=== PATIENT | male | born 1955 | race African-American/Black ===

== ENCOUNTER → 2016-12-06 | Outpatient (CLI) | payer BC, OTHER ==
--- NOTE | 2016-12-06 16:07 | XCELERA REPORT ---
[address] [address] Lower Extremity Arterial Evaluation Name: CORRINE AGGARWAL Age: 61 yrs Gender: Male : 1955 Patient Status: Outpatient Patient Location: Study Date: 12/06/2016 07:56 AM Procedure: Normal velocity and triphasic waveforms noted from the Common Femoral artery to the Femoral Biphasic thereafter to the infrageniculate vessels. 0-19% stenosis at the Femoral artery. Ankle Brachial index is 1.32. Reason For Study: PVD Ordering Physician: NOAH GARG Performed By: Andrew Childs Measurements and Calculations Right Left SOFTWARE CLIENT ARCHITECT PSV 156.3 151.5 cm/sec Prox PFA PSV -175.2 -146.1 cm/sec Dist SFA PSV -103.7 -94.9 cm/sec Dist Pop A PSV 63.2 85.4 cm/sec Dist BEVERLY PSV 43.6 58.5 cm/sec Dist RECREATION ADVISER PSV 73.5 75.8 cm/sec Andry Pedis PSV 39.6 37.5 cm/sec Left Side Arterial Evaluation Normal velocity and triphasic waveforms noted from the Common Femoral artery to the Femoral Biphasic thereafter to the infrageniculate vessels. 0-19% stenosis at the Femoral artery. Ankle Brachial index is 1.25. Interpretation Summary Mild hemodynamically significant lesions in the bilateral lower extremities, on duplex imaging, at rest. : NOAH GARG > Noah Garg
== END ==
LOC: SP 07:39
PROVIDERS: ATTEND Surgery
DX: I73.9 Peripheral vascular disease, unspecified (principal); M79.89 Other specified soft tissue disorders
CPT/HCPCS: 93925

== ENCOUNTER 2020-06-16 00:34 | Emergency (ER) | payer OTHER, MEDICARE ==
--- NOTE | 2020-06-16 01:37 | ER Document Report ---
ED Medical Screen (RME) - General Chief Complaint: Rectal Bleeding Stated Complaint: POSSIBLE RECTAL BLEEDING Primary Care Provider: SANKET GARG MD [Primary Care Provider] - Follow up as needed Notes: Patient is a 64-year-old white male with a history of diabetes and hypertension who presents to the emergency department with a chief complaint of lower abdominal pain that began around 7:00 this evening. He states it is associated with about 6 episodes of diarrhea that he describes as bloody. States it is a dark blood. States he for believes that he has an ulcer that is causing this. He states he is never had an endoscopy or colonoscopy however. Denies any nausea or vomiting. No fevers. Admits to some slight weakness associated. Primary is Maty jacobs. I have treated and performed a rapid initial assessment of this patient. A comprehensive ED assessment and evaluation of the patient, analysis of test results and completion of medical decision making process will be conducted by additional ED providers. Will defer CT scan or other imaging evaluation subtype to selection of main ED provider who will be more extensively examining and caring for this patient. PHYSICAL EXAMINATION: GENERAL: Well-appearing, well-nourished and in no acute distress. A&Ox4. Answers questions appropriately. TRAVEL OUTSIDE OF THE [place] IN LAST 30 DAYS: No Physical Exam - Vital signs Vitals: Temp Pulse Resp BP Pulse Ox 98.2 F 86 18 136/90 H 98 06/16/20 01:04 06/16/20 01:04 06/16/20 01:04 06/16/20 01:04 06/16/20 01:04 Course - Vital Signs Vital signs: Temp Pulse Resp BP Pulse Ox 98.2 F 86 18 136/90 H 98 06/16/20 01:04 06/16/20 01:04 06/16/20 01:04 06/16/20 01:04 06/16/20 01:04 Doctor's Discharge - Discharge Referrals: SANKET GARG MD [Primary Care Provider] - Follow up as needed
[2020-06-16 02:40] LABS: ABSOLUTE EOSINOPHILS # (AUTO) 0.1 10^3/uL (0.0-0.6); ABSOLUTE LYMPHOCYTES (AUTO) 1.8 10^3/uL (0.5-4.7); ABSOLUTE MONOCYTES (AUTO) 0.7 10^3/uL (0.1-1.4); ABSOLUTE NEUT (AUTO) 2.6 10^3/uL (1.7-8.2); BASOPHILS % (AUTO) 0.5 % (0-2); HEMATOCRIT 34.1 % (37.9-51.0); HEMOGLOBIN 11.7 g/dL (13.5-17.0); LYMPHOCYTES % (AUTO) 35.3 % (13-45); MEAN CORPUSCULAR HEMOGLOBIN 31.2 pg (27.0-33.4); MEAN CORPUSCULAR HGB CONC 34.2 g/dL (32.0-36.0); MEAN CORPUSCULAR VOLUME 91 fl (80-97); MONOCYTES % (AUTO) 12.9 % (3-13); PLATELET COUNT 192 10^3/uL (150-450); RED BLOOD COUNT 3.73 10^6/uL (4.35-5.55); RED CELL DISTRIBUTION WIDTH 14.2 % (11.5-14.0); SEGMENTED NEUTROPHILS % (AUTO) 50.3 % (42-78); TOTAL CELLS COUNTED % (AUTO) 100 %; WHITE BLOOD COUNT 5.2 10^3/uL (4.0-10.5)
[2020-06-16 03:02] LABS: ALBUMIN 3.6 g/dL (3.5-5.0); ALKALINE PHOSPHATASE 60 U/L (38-126); ANION GAP 8 (5-19); ASPARTATE AMINO TRANSFERASE 27 U/L (17-59); BILIRUBIN,DIRECT 0.2 mg/dL (0.0-0.4); BILIRUBIN,TOTAL 0.5 mg/dL (0.2-1.3); BLOOD UREA NITROGEN 23 mg/dL (7-20); CALCIUM 9.4 mg/dL (8.4-10.2); CARBON DIOXIDE 27 mmol/L (22-30); CHLORIDE 107 mmol/L (98-107); GLUCOSE 118 mg/dL (75-110); TOTAL PROTEIN 6.5 g/dL (6.3-8.2)
[2020-06-16 03:08] LABS: INTERNATIONAL RATION (INR) 1.04; PROTHROMBIN TIME 13.8 SEC (11.4-15.4)
[2020-06-16 03:09] LABS: PARTIAL THROMBOPLASTIN TIME 36.7 SEC (23.5-35.8)
--- NOTE | 2020-06-16 06:00 | ER Document Report ---
ED GI/ - General Chief Complaint: Rectal Bleeding Stated Complaint: POSSIBLE RECTAL BLEEDING Time Seen by Provider: 06/16/20 05:45 Primary Care Provider: SANKET GARG MD [ACTIVE STAFF] - Follow up as needed Notes: Patient is a 64-year-old male that comes emergency department for chief complaint of lower abdominal pain that began about 7 PM yesterday, he states he had about 6 episodes of loose stool that were very dark with some casing fluid tender blood mixed in. Patient denies nausea, vomiting, fever. He states that after the sixth episode while waiting to be seen in emergency department this does seem to have slowed down. He is not on a blood thinner. He states he has had a lower GI bleed in the past, he had a colonoscopy about a year ago per which was unremarkable. He denies any abdominal surgeries. Past medical history of hypertension, diabetes, and aortic valve leak being monitored. Primary care is [facility]. TRAVEL OUTSIDE OF THE [place] IN LAST 30 DAYS: No - Related Data Allergies/Adverse Reactions: No Known Allergies Allergy (Unverified 06/16/20 01:36) Past Medical History - General Information source: Patient, Relative - Social History Smoking Status: Former Smoker Frequency of alcohol use: None Drug Abuse: None Lives with: Family Family History: Reviewed & Not Pertinent - Past Medical History Cardiac Medical History: Reports: Hx Hypertension Endocrine Medical History: Reports: Hx Diabetes Mellitus Type 2 - Immunizations Immunizations up to date: Yes Hx Diphtheria, Pertussis, Tetanus Vaccination: Yes Review of Systems - Review of Systems Constitutional: No symptoms reported EENT: No symptoms reported Cardiovascular: No symptoms reported Respiratory: No symptoms reported Gastrointestinal: See HPI Genitourinary: No symptoms reported Male Genitourinary: No symptoms reported Musculoskeletal: No symptoms reported Skin: No symptoms reported Hematologic/Lymphatic: No symptoms reported Neurological/Psychological: No symptoms reported Physical Exam - Vital signs Vitals: Temp Pulse Resp BP Pulse Ox 98.2 F 86 18 136/90 H 98 06/16/20 01:04 06/16/20 01:04 06/16/20 01:04 06/16/20 01:04 06/16/20 01:04 - Notes Notes: GENERAL: Sleeping but easily aroused. No signs of distress. HEAD: Normocephalic, atraumatic. EYES: Pupils equal, round, and reactive to light. Extraocular movements intact. ENT: Oral mucosa moist, tongue midline. Oropharynx unremarkable. Airway patent. LUNGS: Clear to auscultation bilaterally, no wheezes, rales, or rhonchi. No respiratory distress. Non-tender chest wall. HEART: Regular rate and rhythm. No murmur ABDOMEN: No overt tenderness, nondistended, bowel sounds present throughout. RECTAL: Small external skin tags, otherwise unremarkable external exam. Internal exam shows internal hemorrhoid around the 8 o'clock position. There is dark stool that is immediately Hemoccult positive. No tenderness. Otherwise unremarkable exam. Exam performed with Mariola [facility] at bedside. EXTREMITIES: Moves all 4 extremities spontaneously. No edema, normal radial and dorsalis pedis pulses bilaterally. No cyanosis. BACK: no cervical, thoracic, lumbar midline tenderness. No saddle anesthesia, normal distal neurovascular exam. Moves all extremities in full range of motion. NEUROLOGICAL: Alert and oriented x3. Normal speech. Cranial nerves II through XII grossly intact. Strength 5/5 in all extremities. PSYCH: Normal affect, normal mood. SKIN: Warm, dry, normal turgor. No rashes or lesions noted. Course - Re-evaluation Re-evalutation: Vital signs unremarkable, abdomen is unremarkable, rectal exam showing dark/black stool which is Hemoccult positive. Because of patient's abdominal pain CAT scan will be performed as well, although he does describe this as more of a "crampy pain". Lactic acid was also added but this was negative. CBC shows mild normocytic anemia at 11.7, chemistry shows mildly elevated BUN. Otherwise unremarkable. 06/16/20 CT with no acute findings incidental findings including probable liver cysts and bilateral small inguinal hernias were discussed with patient. Based on his overall evaluation, multiple black stools, black stool on exam, mildly elevated BUN, I suspect patient has a upper GI bleed. Recommended to start Protonix and admit to the hospital for monitoring and potential endoscopy/colonoscopy. However patient and significant other declined. Patient states he has stopped bleeding, he feels much better, and he would rather go home. I explained that a gastrointestinal bleed can be extremely dangerous and he could rapidly decompensate or even . Patient insists that he will be discharged, he requests medications for this, he states that if he worsens he will return and he understands the risks. He request to sign out AGAINST MEDICAL ADVICE. After discussing all the risks in detail patient did sign out AGAINST MEDICAL ADVICE. did states she will bring him back if he worsens but she agrees with his plan. - Vital Signs Vital signs: Temp Pulse Resp BP Pulse Ox 98.3 F 93 20 122/73 100 06/16/20 03:39 06/16/20 03:39 06/16/20 03:39 06/16/20 03:39 06/16/20 03:39 - Laboratory Result Diagrams: 06/16/20 02:05 06/16/20 02:05 Laboratory results interpreted by me: 06/16/20 06/16/20 06/16/20 02:05 02:05 02:05 RBC 3.73 L Hgb 11.7 L Hct 34.1 L RDW 14.2 H APTT 36.7 H BUN 23 H Glucose 118 H Discharge - Discharge Clinical Impression: Upper GI bleed Abdominal pain Qualifiers: Abdominal location: generalized Qualified Code(s): R10.84 - Generalized abdominal pain Condition: Stable Disposition: HOME, SELF-CARE Additional Instructions: Your evaluation is concerning for an upper gastrointestinal bleed. You are signing out AGAINST MEDICAL ADVICE at this time. There is a possibility that you could become severely ill or even from a gastrointestinal bleed. You tang ve been prescribed medications, however the recommendation is that you return to the emergency department or seek medical care at a nearby medical facility for additional treatment of your GI bleed. Prescriptions: Sucralfate [Carafate 1 gm Tablet] 1 gm PO QID #20 tablet Omeprazole 40 mg PO DAILY #30 capsule.
--- NOTE | 2020-06-16 07:24 | RADIOLOGY REPORT (SQ) ---
EXAM: CT abdomen and pelvis with IV contrast CLINICAL DATA: 64-year-old male with abdominal pain and blood in stool TECHNICAL DATA: Axial CT imaging of the abdomen and pelvis was performed following the administration of intravenous contrast.. Oral contrast was not administered. Sagittal and coronal reconstructed images were then performed. The CT study is performed according to ALARA (as low as reasonably achievable) or ALARA/IMAGE GENTLY, with automatic adjustment of mA and/or kV according to patient size. Performed on: 06/16/2020 at 6:34 AM. Comparison: No prior studies were available for comparison. FINDINGS: Lung bases: The lung bases are clear. Liver:The liver is normal in size and configuration. There are multiple sharply marginated low density lesions scattered throughout the liver most compatible with incidental hepatic cysts. The largest is located along the dome of the posterior right hepatic lobe and measures approximately 3.9 x 2.7 x 2.7 cm. Liver attenuation is otherwise within normal limits. Spleen:The spleen is normal is size, configuration and attenuation. Gallbladder and bile duct: The gallbladder is well distended and unremarkable. There is no biliary ductal dilatation. Pancreas: The pancreas is grossly normal in size and configuration. Adrenal Glands:The adrenal glands are normal in size and configuration. Kidneys:The kidneys are normal in size and configuration. There is no evidence of hydronephrosis. There is no evidence of nephrolithiasis. There is a tiny exophytic cortical cyst arising from the lower pole of the right kidney. Stomach:The stomach is grossly normal. There is no definite hiatal hernia. Bowel:The bowel gas pattern is non specific and non obstructive. There is scattered colonic diverticulosis. Appendix: The appendix is normal. Free air:There is no evidence of free air. Free fluid: There is no evidence of free fluid. Vasculature: The aorta is normal in caliber and contour. The inferior vena cava is grossly unremarkable. Lymphadenopathy: No pathologic lymphadenopathy is identified. Bladder: The bladder is well distended and smooth in contour. Reproductive: The prostate gland is enlarged and deforms the base of the bladder. Bones: No acute osseous abnormalities are identified. Soft tissues: No focal soft tissue abnormalities are identified. There are small bilateral fat-containing inguinal hernias. IMPRESSION: 1. No evidence of acute intra-abdominal or intrapelvic pathology. 2. Multiple sharply marginated hypodense hepatic mass lesions most compatible with incidental hepatic cysts as described above. 3. Scattered colonic diverticulosis without su diverticulitis. 4. Prostatic hypertrophy. The prostate gland deforms the base of the bladder. 5. Small bilateral fat-containing inguinal hernias.
[2020-06-16 07:53] VITALS: BP 128/82
== END 2020-06-16 07:51 | disposition home or self-care (01) ==
LOC: ER 00:34
DX: K92.2 Gastrointestinal hemorrhage, unspecified (principal); R10.84 Generalized abdominal pain; R10.30 Lower abdominal pain, unspecified; I10 Essential (primary) hypertension; E11.9 Type 2 diabetes mellitus without complications
CPT/HCPCS: 36415; 74177; 80053; 82270; 83605; 83690; 85025; 85610; 85730; 86850; 86900; 86901; 99285

== ENCOUNTER 2020-06-19 13:40 | Inpatient (IN) | payer OTHER, MEDICARE ==
[2020-06-19] MEDS ORDERED: RINGERS SOLUTION,LACTATED 1,000 ML IV ONE (13:42)
--- NOTE | 2020-06-19 13:45 | ER Document Report ---
ED Medical Screen (RME) - General Chief Complaint: Bloody Stools Stated Complaint: BLOODY STOOL Time Seen by Provider: 06/19/20 13:41 TRAVEL OUTSIDE OF THE [place] IN LAST 30 DAYS: No - HPI Notes: 06/19/20 13:43 64-year-old male to the emergency department with complaints of 6 episodes of frankly bloody stool today and left lower quadrant abdominal pain as well as feeling like he is going to pass out. He was seen here 2 days ago for the same. He was offered admission but he decided to go home. He is following up with [facility] today when he let them know that his symptoms were getting worse. He states they offered to send him in an ambulance but he decided to come by private vehicle. He states anytime he sits up or tries to walk he feels like he is going to pass out. He denies any nausea or vomiting. He does have a history of diverticulitis. He denies any fevers or chills. He denies any chest pain. I was called out to the parking lot to his private vehicle because he could not get out of the car without assistance. He has on my brief medical screening exam left lower quadrant abdominal pain and he is significantly pale on his mucosal membranes and conjunctive. He was moved directly back to bed 18 where labs and line were drawn. Charge nurse is actively aware and involved in his care. I performed a brief medical screening exam on the patient determined that the patient needs further evaluation and management by main side provider. I have placed initial orders to help expedite care. - Related Data Allergies/Adverse Reactions: No Known Allergies Allergy (Unverified 06/16/20 01:36) Past Medical History - Past Medical History Cardiac Medical History: Reports: Hx Hypertension Endocrine Medical History: Reports: Hx Diabetes Mellitus Type 2 - Immunizations Immunizations up to date: Yes Hx Diphtheria, Pertussis, Tetanus Vaccination: Yes
[2020-06-19 13:59] LABS: ABSOLUTE EOSINOPHILS # (AUTO) 0.1 10^3/uL (0.0-0.6); ABSOLUTE LYMPHOCYTES (AUTO) 2.5 10^3/uL (0.5-4.7); ABSOLUTE MONOCYTES (AUTO) 0.7 10^3/uL (0.1-1.4); BASOPHILS % (AUTO) 0.6 % (0-2); HEMATOCRIT 25.5 % (37.9-51.0); HEMOGLOBIN 8.9 g/dL (13.5-17.0); LYMPHOCYTES % (AUTO) 39.2 % (13-45); MEAN CORPUSCULAR HEMOGLOBIN 31.7 pg (27.0-33.4); MEAN CORPUSCULAR HGB CONC 34.7 g/dL (32.0-36.0); MEAN CORPUSCULAR VOLUME 92 fl (80-97); MONOCYTES % (AUTO) 11.7 % (3-13); PLATELET COUNT 220 10^3/uL (150-450); RED BLOOD COUNT 2.79 10^6/uL (4.35-5.55); SEGMENTED NEUTROPHILS % (AUTO) 47.5 % (42-78); TOTAL CELLS COUNTED % (AUTO) 100 %; WHITE BLOOD COUNT 6.3 10^3/uL (4.0-10.5)
[2020-06-19 14:20] LABS: ALBUMIN 3.8 g/dL (3.5-5.0); ALKALINE PHOSPHATASE 56 U/L (38-126); ANION GAP 8 (5-19); ASPARTATE AMINO TRANSFERASE 28 U/L (17-59); BILIRUBIN,DIRECT 0.1 mg/dL (0.0-0.4); BILIRUBIN,TOTAL 0.3 mg/dL (0.2-1.3); BLOOD UREA NITROGEN 15 mg/dL (7-20); CALCIUM 9.1 mg/dL (8.4-10.2); CARBON DIOXIDE 27 mmol/L (22-30); CHLORIDE 105 mmol/L (98-107); GLUCOSE 130 mg/dL (75-110); POTASSIUM 3.9 mmol/L (3.6-5.0); TOTAL PROTEIN 6.5 g/dL (6.3-8.2)
[2020-06-19] MEDS ORDERED: NORMAL SALINE 1000 ML 1,000 ML IV ONE (16:11)
--- NOTE | 2020-06-19 16:29 | ER Document Report ---
ED General - General Chief Complaint: GI Bleeding Stated Complaint: BLOODY STOOL Time Seen by Provider: 06/19/20 13:41 Notes: 64 year old male with h/o htn, dm, hld, valvular heart disease and diverticular disease had rectal bleeding this am - blood mixed with stool and then nearly passed out. He presented here for evaluation. He was here 2 days ago for bleeding and had hgb 11.7 at that time. He left against medical advice with that visit. He has developed some increased LLQ pain since the last visit. He follows locally with [facility] for his medical care. TRAVEL OUTSIDE OF THE [place] IN LAST 30 DAYS: No - HPI Severity: Moderate Associated symptoms: Weakness Exacerbated by: Denies Relieved by: Denies Similar symptoms previously: Yes - Related Data Allergies/Adverse Reactions: No Known Allergies Allergy (Unverified 06/16/20 01:36) Past Medical History - Social History Smoking Status: Former Smoker Chew tobacco use (# tins/day): No Frequency of alcohol use: None Drug Abuse: None Family History: Reviewed & Not Pertinent Patient has homicidal ideation: No - Past Medical History Cardiac Medical History: Reports: Hx Hypertension Endocrine Medical History: Reports: Hx Diabetes Mellitus Type 2 - Immunizations Immunizations up to date: Yes Hx Diphtheria, Pertussis, Tetanus Vaccination: Yes Physical Exam - Vital signs Vitals: Resp Pulse Ox 9 L 100 06/19/20 13:50 06/19/20 13:50 Interpretation: Normal - General General appearance: Appears well, Alert - HEENT Head: Normocephalic, Atraumatic Eyes: Normal Pupils: PERRL - Respiratory Respiratory status: No respiratory distress Chest status: Nontender Breath sounds: Normal Chest palpation: Normal - Cardiovascular Rhythm: Regular Heart sounds: Normal auscultation Murmur: No - Abdominal Inspection: Normal Distension: No distension Bowel sounds: Normal Tenderness: Nontender Organomegaly: No organomegaly - Back Back: Normal, Nontender - Extremities General upper extremity: Normal inspection, Nontender, Normal color, Normal ROM, Normal temperature General lower extremity: Normal inspection, Nontender, Normal color, Normal ROM, Normal temperature, Normal weight bearing. No: David's sign - Neurological Neuro grossly intact: Yes Cognition: Normal Orientation: AAOx4 [place] Coma Scale Eye Opening: Spontaneous Benny Coma Scale Verbal: Oriented [place] Coma Scale Motor: Obeys Commands Benny Coma Scale Total: 15 Speech: Normal Motor strength normal: LUE, RUE, LLE, RLE Sensory: Normal - Psychological Associated symptoms: Normal affect, Normal mood - Skin Skin Temperature: Warm Skin Moisture: Dry Skin Color: Normal Course - Re-evaluation Re-evalutation: 06/19/20 18:33 MDM 64 year old male with known diverticular disease has lower gi bleed and decreasing hgb, 11.7 to 8.9. He takes no anticoagulation. Dr. Solares is aware and has graciously agreed to see and evaluate the pt. Discussed with the daytime team at 1820 and asked to consult Safely which was done. I have discussed the pt with Dr. Mansfield. - Vital Signs Vital signs: Temp Pulse Resp BP Pulse Ox 98.1 F 14 143/83 H 99 06/19/20 14:01 06/19/20 17:00 06/19/20 16:00 06/19/20 17:00 - Laboratory Result Diagrams: 06/19/20 13:40 06/19/20 13:40 Laboratory results interpreted by me: 06/19/20 06/19/20 13:40 13:40 RBC 2.79 L Hgb 8.9 L Hct 25.5 L Glucose 130 H - Diagnostic Test Radiology reviewed: Image reviewed, Reports reviewed - EKG Interpretation by Me EKG shows normal: Sinus rhythm Rate: Normal Rhythm: NSR Voltage: Consistent with LVH - NSR NL axis LVH Repola ab no st elevation or depression. Discharge - Discharge Clinical Impression: Rectal bleeding, Diverticulosis Abdominal pain Qualifiers: Abdominal location: left lower quadrant Qualified Code(s): R10.32 - Left lower quadrant pain Condition: Stable Disposition: ADMITTED OBSERVATION Admitting Provider: Donal (Hospitalist) Unit Admitted: Telemetry
[2020-06-19] MEDS ORDERED: ERTAPENEM SODIUM INJ 1 GM VIAL IV ONE (16:30)
--- NOTE | 2020-06-19 18:10 | EKG REPORT ---
SEVERITY:- ABNORMAL ECG - SINUS RHYTHM LEFT VENTRICULAR HYPERTROPHY BORDERLINE T ABNORMALITIES, DIFFUSE LEADS : Confirmed by: Otis Cannon MD 19-Jun-2020 18:09:48
--- NOTE | 2020-06-19 18:11 | RADIOLOGY REPORT (SQ) ---
EXAM DESCRIPTION: CT ABD/PELVIS WITH IV ONLY IMAGES COMPLETED DATE/TIME: 06/19/2020 5:54 pm REASON FOR STUDY: LLQ pain COMPARISON: 06/16/2020 TECHNIQUE: CT scan of the abdomen and pelvis performed using helical scanning technique with dynamic intravenous contrast injection. No oral contrast. Images reviewed with lung, soft tissue, and bone windows. Reconstructed coronal and sagittal MPR images reviewed. Delayed images for evaluation of the urinary system also acquired. All images stored on PACS. All CT scanners at this facility use dose modulation, iterative reconstruction, and/or weight based d osing when appropriate to reduce radiation dose to as low as reasonably achievable (ALARA). [facility]: Dose Right [facility]: CareDose [facility]: Dose Right [facility]: Teradose 4D [facility]: Netragon CONTRAST TYPE AND DOSE: contrast/concentration: Isovue 350.00 mmol/ml; Total Contrast Delivered: 99. 0 ml; Total Saline Delivered: 30.9 ml RENAL FUNCTION: BUN 15 creatinine 0.89 RADIATION DOSE: CT Rad equipment meets quality standard of care and radiation dose reduction techniq ues were employed. CTDIvol: 10.8 - 15.2 mGy. DLP: 1404 mGy-cm.. LIMITATIONS: None. FINDINGS: LOWER CHEST: No significant findings. No nodules or infiltrates. LIVER: Hepatic cysts are present. No solid masses. SPLEEN: Normal size. No focal lesions. PANCREAS: No masses. No significant calcifications. No adjacent inflammation or peripancreatic fluid collections. Pancreatic duct not dilated. GALLBLADDER: No identified stones by CT criteria. No inflammatory changes to suggest cholecystitis. ADRENAL GLANDS: No significant masses or asymmetry. RIGHT KIDNEY AND URETER: No solid masses. No significant calcifications. No hydronephrosis or hyd roureter. LEFT KIDNEY AND URETER: No solid masses. No significant calcifications. No hydronephrosis or hydr oureter. AORTA AND VESSELS: No aneurysm. No dissection. Renal arteries, SMA, celiac without stenosis. RETROPERITONEUM: No retroperitoneal adenopathy, hemorrhage or masses. BOWEL AND PERITONEAL CAVITY: Diverticulosis with no acute inflammation. No obvious bowel mass. APPENDIX: Normal. PELVIS: Urinary bladder is normal. The prostate gland is enlarged. ABDOMINAL WALL: Uncomplicated inguinal hernias. BONES: No significant or acute findings. OTHER: No other significant finding. IMPRESSION: Hepatic cysts. Diverticulosis coli. Uncomplicated inguinal hernias. Enlarged prostate gland. TECHNICAL DOCUMENTATION: JOB ID: [id number] Quality ID # [id number]: Final reports with documentation of one or more dose reduction techniques (e.g., Au tomated exposure control, adjustment of the mA and/or kV according to patient size, use of iterative reconstruction technique) 2010 [employer]- All Rights Reserved Reading location - IP/workstation name: [email or web address]
[2020-06-19] MEDS ORDERED: IPRATROPIUM/ALBUTEROL 0.5-2.5 MG/3 ML AMPUL NEB PRN (18:47)
--- NOTE | 2020-06-19 18:57 | PDOC H&P ---
History of Present Illness Admission Date/PCP: 06/19/2020 Patient complains of: Presents to the emergency room with complaints of rectal bleeding. History of Present Illness: CORRINE AGGARWAL is a 64 year old male Presents to the emergency room with complaints of rectal bleeding. He does give a prior history of diverticulosis. He was here in the ER 2 days ago and returns today with the same complaints. He left AGAINST MEDICAL ADVICE at the time. He also complains of some left lower quadrant pain. There is no nausea vomiting. He was found to have diverticulosis on CT scan with no other significant findings. He did have an enlarged prostate gland and uncomplicated inguinal hernias. According to the ER physician he is already consulted general surgery. Patient's hemoglobin was 11.7 on June 16 and is currently 8.9 today his BUN was 23 and it is currently 15 and is also hemodynamically stable. He is not hypotensive Past Medical History Cardiac Medical History: Reports: Hypertension Endocrine Medical History: Reports: Diabetes Mellitus Type 2 Past Surgical History Past Surgical History: Reports: None Social History Information Source: Patient Smoking Status: Former Smoker Electronic Cigarette use?: No - Advance Directive Resuscitation Status: Full Code Family History Family History: Reviewed & Not Pertinent Parental Family History Reviewed: Yes Children Family History Reviewed: Yes Sibling(s) Family History Reviewed.: Yes Medication/Allergy Home Medications: Omeprazole 40 mg PO DAILY #30 capsule. 06/16/20 Sucralfate [Carafate 1 gm Tablet] 1 gm PO QID #20 tablet 06/16/20 Albuterol Sulfate [Proair Hfa Inhalation Aerosol 8.5 gm Mdi] 2 puff IH Q4HP PRN 06/19/20 Allopurinol [Zyloprim 100 mg Tablet] 100 mg PO DAILY 06/19/20 Atenolol [Tenormin] 25 mg PO DAILY 06/19/20 Atorvastatin Calcium [Lipitor 40 mg Tablet] 40 mg PO QHS 06/19/20 Carboxymethylcellulose Sodium [Lubricating Plus] 1 each OP TID 06/19/20 Diltiazem HCl [Cardizem Cd] 360 mg PO DAILY 06/19/20 Ergocalciferol (Vitamin D2) [Vitamin D2] 1,250 mcg PO Q7D 06/19/20 Fluticasone Propionate [Flonase Nasal Adams 50 Mcg/Adams 16 gm] 2 spray NASL DAILY 06/19/20 Furosemide [Lasix 20 mg Tablet] 20 mg PO QAM 06/19/20 Gabapentin [Neurontin] 800 mg PO TID 06/19/20 Hydrochlorothiazide [Hydrodiuril 50 mg Tablet] 50 mg PO DAILY 06/19/20 Lisinopril/Hydrochlorothiazide [Lisinopril-Hctz 20-25 mg Tab] 1 each PO DAILY 06/19/20 Loratadine [Claritin 10 mg Tablet] 10 mg PO DAILY 06/19/20 Metformin HCl 500 mg PO BID 06/19/20 Montelukast Sodium [Singulair 10 mg Tablet] 10 mg PO DAILY 06/19/20 Nitroglycerin [Nitrostat 0.4 mg (1/150 Gr) Tabs 25/Bottle] 1 tab SL Q5MP PRN 06/19/20 Potassium Chloride [Klor-Con M10] 10 meq PO DAILY 06/19/20 Sertraline HCl [Zoloft 50 mg Tablet] 50 mg PO DAILY 06/19/20 Tizanidine HCl [Zanaflex 4 Mg Tablet] 4 mg PO TID 06/19/20 Allergies/Adverse Reactions: No Known Allergies Allergy (Unverified 06/16/20 01:36) Review of Systems All systems: reviewed and no additional remarkable complaints except as stated Cardiovascular: ABSENT: chest pain, dyspnea on exertion, palpitations Respiratory: ABSENT: hemoptysis Gastrointestinal: PRESENT: melena. ABSENT: diarrhea, nausea, vomiting Genitourinary: ABSENT: hematuria Physical Exam Vital Signs: Temp Pulse Resp BP Pulse Ox 98.1 F 14 143/83 H 99 06/19/20 14:01 06/19/20 17:00 06/19/20 16:00 06/19/20 17:00 Intake & Output 06/18/20 06/19/20 06/20/20 06:59 06:59 06:59 Intake Total 1000 Balance 1000 General appearance: PRESENT: no acute distress, well-developed, well-nourished Head exam: PRESENT: atraumatic, normocephalic Eye exam: PRESENT: conjunctiva pink, EOMI, PERRLA. ABSENT: scleral icterus Ear exam: PRESENT: normal external ear exam Mouth exam: PRESENT: moist, tongue midline Neck exam: ABSENT: carotid bruit, JVD, lymphadenopathy, thyromegaly Respiratory exam: PRESENT: clear to auscultation bobbi. ABSENT: rales, rhonchi, wheezes Cardiovascular exam: PRESENT: RRR, +S1, +S2. ABSENT: diastolic murmur, rubs, systolic murmur Pulses: PRESENT: normal dorsalis pedis pul Vascular exam: PRESENT: normal capillary refill GI/Abdominal exam: PRESENT: normal bowel sounds, soft. ABSENT: distended, guarding, mass, organolmegaly, rebound, tenderness Rectal exam: PRESENT: deferred Extremities exam: PRESENT: full ROM. ABSENT: calf tenderness, clubbing, pedal edema Neurological exam: PRESENT: alert, awake, oriented to person, oriented to place, oriented to time, oriented to situation, CN II-XII grossly intact. ABSENT: motor sensory deficit Psychiatric exam: PRESENT: appropriate affect, normal mood. ABSENT: homicidal ideation, suicidal ideation Skin exam: PRESENT: dry, intact, warm. ABSENT: cyanosis, rash Results Laboratory Results: 06/19/20 13:40 06/19/20 13:40 06/19/20 06/19/20 06/19/20 13:40 13:40 13:40 WBC 6.3 RBC 2.79 L Hgb 8.9 L Hct 25.5 L MCV 92 MCH 31.7 MCHC 34.7 RDW 14.0 Plt Count 220 Seg Neutrophils % 47.5 Sodium 140.0 Potassium 3.9 Chloride 105 Carbon Dioxide 27 Anion Gap 8 BUN 15 Creatinine 0.89 Est GFR ( Amer) > 60 Glucose 130 H Lactic Acid Calcium 9.1 Magnesium Total Bilirubin 0.3 AST 28 Alkaline Phosphatase 56 Total Protein 6.5 Albumin 3.8 Lipase 71.3 Blood Type O POSITIVE Antibody Screen NEGATIVE 06/19/20 06/19/20 15:40 17:09 WBC RBC Hgb Hct MCV MCH MCHC RDW Plt Count Seg Neutrophils % Sodium Potassium Chloride Carbon Dioxide Anion Gap BUN Creatinine Est GFR ( Amer) Glucose Lactic Acid 1.7 Calcium Magnesium 1.8 Total Bilirubin AST Alkaline Phosphatase Total Protein Albumin Lipase Blood Type Antibody Screen Impressions: Abdomen/Pelvis CT 06/19/20 16:10 IMPRESSION: Hepatic cysts. Diverticulosis coli. Uncomplicated inguinal hernias. Enlarged prostate gland. Assessment and Plan - Diagnosis (1) Abdominal pain Qualifiers: Abdominal location: left lower quadrant Qualified Code(s): R10.32 - Left lower quadrant pain Is this a current diagnosis for this admission?: Yes (2) Diverticulosis Is this a current diagnosis for this admission?: Yes (3) Rectal bleeding Is this a current diagnosis for this admission?: Yes (4) Upper GI bleed Is this a current diagnosis for this admission?: Yes (5) Anemia Is this a current diagnosis for this admission?: Yes Plan: Acute blood loss - Plan Summary Summary: Continue with to monitor H&H and transfuse as indicated - Time Time Spent with patient: 25-34 minutes Medications reviewed and adjusted accordingly: Yes Anticipated Discharge Disposition: Home, Self Care Anticipated Discharge Timeframe: within 48 hours
[2020-06-19] MEDS: PANTOPRAZOLE SODIUM 40 MG VIAL IV SCH (22:25)
[2020-06-19] MEDS: NORMAL SALINE 1000 ML 1,000 ML IV PRN (23:00)
[2020-06-20 00:57] LABS: ABSOLUTE LYMPHOCYTES (AUTO) 1.9 10^3/uL (0.5-4.7); ABSOLUTE MONOCYTES (AUTO) 0.7 10^3/uL (0.1-1.4); ABSOLUTE NEUT (AUTO) 2.9 10^3/uL (1.7-8.2); BASOPHILS % (AUTO) 0.5 % (0-2); EOSINOPHILS % (AUTO) 0.7 % (0-6); HEMATOCRIT 20.7 % (37.9-51.0); LYMPHOCYTES % (AUTO) 34.3 % (13-45); MEAN CORPUSCULAR HEMOGLOBIN 31.6 pg (27.0-33.4); MEAN CORPUSCULAR HGB CONC 34.7 g/dL (32.0-36.0); MEAN CORPUSCULAR VOLUME 91 fl (80-97); MONOCYTES % (AUTO) 12.8 % (3-13); PLATELET COUNT 180 10^3/uL (150-450); RED BLOOD COUNT 2.28 10^6/uL (4.35-5.55); SEGMENTED NEUTROPHILS % (AUTO) 51.7 % (42-78); TOTAL CELLS COUNTED % (AUTO) 100 %; WHITE BLOOD COUNT 5.6 10^3/uL (4.0-10.5)
[2020-06-20 01:02] LABS: HEMOGLOBIN 7.2 g/dL (13.5-17.0)
[2020-06-20] MEDS ORDERED: DEXTROSE 50%-WATER SYRINGE 25 GM/50 ML DOSE IV PRN ×2 (02:30→19:30)
[2020-06-20] MEDS ORDERED: DEXTROSE 40% GEL 15 GM TUBE PO PRN ×2 (02:30→19:30)
[2020-06-20] MEDS ORDERED: DEXTROSE 40% GEL 15 GM TUBE X 2 PO PRN ×2 (02:30→19:30)
[2020-06-20] MEDS ORDERED: GLUCAGON,HUMAN RECOMB 1 MG INJ IM PRN ×2 (02:30→19:30)
[2020-06-20] MEDS ORDERED: DEXTROSE 50%-WATER SYRINGE 12.5 GM/25 ML DOSE IV PRN ×2 (02:30→19:30)
[2020-06-20] MEDS: NORMAL SALINE 1000 ML 1,000 ML IV PRN (05:35)
[2020-06-20 06:50] LABS: ABSOLUTE EOSINOPHILS # (AUTO) 0.1 10^3/uL (0.0-0.6); ABSOLUTE LYMPHOCYTES (AUTO) 1.8 10^3/uL (0.5-4.7); ABSOLUTE MONOCYTES (AUTO) 0.7 10^3/uL (0.1-1.4); ABSOLUTE NEUT (AUTO) 2.4 10^3/uL (1.7-8.2); BASOPHILS % (AUTO) 0.9 % (0-2); EOSINOPHILS % (AUTO) 1.4 % (0-6); HEMATOCRIT 20.7 % (37.9-51.0); LYMPHOCYTES % (AUTO) 36.3 % (13-45); MEAN CORPUSCULAR HEMOGLOBIN 31.5 pg (27.0-33.4); MEAN CORPUSCULAR HGB CONC 34.5 g/dL (32.0-36.0); MEAN CORPUSCULAR VOLUME 91 fl (80-97); MONOCYTES % (AUTO) 14.3 % (3-13); PLATELET COUNT 183 10^3/uL (150-450); RED BLOOD COUNT 2.27 10^6/uL (4.35-5.55); RED CELL DISTRIBUTION WIDTH 14.3 % (11.5-14.0); SEGMENTED NEUTROPHILS % (AUTO) 47.1 % (42-78); TOTAL CELLS COUNTED % (AUTO) 100 %
[2020-06-20 06:56] LABS: HEMOGLOBIN 7.2 g/dL (13.5-17.0)
[2020-06-20 07:00] LABS: ANION GAP 8 (5-19); BLOOD UREA NITROGEN 11 mg/dL (7-20); CALCIUM 8.6 mg/dL (8.4-10.2); CARBON DIOXIDE 23 mmol/L (22-30); CHLORIDE 108 mmol/L (98-107); GLUCOSE 91 mg/dL (75-110)
[2020-06-20] MEDS ORDERED: NORMAL SALINE 250 ML IV PRN ×2 (07:06)
--- NOTE | 2020-06-20 12:58 | PDOC PROGRESS REPORT ---
Subjective Progress Note for:: 06/20/20 Subjective:: Patient has not had any BM since yesterday. His hemoglobin is noted to have drifted though from 8.7 on admission to 7.2 this morning he is currently receiving 1 unit of packed red blood cells. There is no dizziness or chest pain. He has no nausea vomiting. Reason For Visit: GI BLEEDING,DIVERTICULOSIS Physical Exam Vital Signs: Temp Pulse Resp BP Pulse Ox 98.4 F 82 16 154/52 H 95 06/20/20 11:08 06/20/20 11:08 06/20/20 11:08 06/20/20 11:08 06/20/20 11:08 Intake & Output 06/19/20 06/20/20 06/21/20 06:59 06:59 05:59 Intake Total 2000 0 Output Total 0 Balance 1999 0 Weight 93 kg General appearance: PRESENT: no acute distress, well-developed, well-nourished Head exam: PRESENT: atraumatic, normocephalic Eye exam: PRESENT: conjunctiva pink, EOMI, PERRLA. ABSENT: scleral icterus Ear exam: PRESENT: normal external ear exam Mouth exam: PRESENT: moist, tongue midline Neck exam: ABSENT: carotid bruit, JVD, lymphadenopathy, thyromegaly Respiratory exam: PRESENT: clear to auscultation bobbi. ABSENT: rales, rhonchi, wheezes Cardiovascular exam: PRESENT: RRR, +S1, +S2. ABSENT: diastolic murmur, rubs, systolic murmur Pulses: PRESENT: normal dorsalis pedis pul Vascular exam: PRESENT: normal capillary refill GI/Abdominal exam: PRESENT: normal bowel sounds, soft, tenderness - Mild left lower quadrant tenderness. ABSENT: distended, guarding, mass, organolmegaly, rebound Rectal exam: PRESENT: deferred Extremities exam: PRESENT: full ROM. ABSENT: calf tenderness, clubbing, pedal edema Neurological exam: PRESENT: alert, awake, oriented to person, oriented to place, oriented to time, oriented to situation, CN II-XII grossly intact. ABSENT: motor sensory deficit Psychiatric exam: PRESENT: appropriate affect, normal mood. ABSENT: homicidal ideation, suicidal ideation Skin exam: PRESENT: dry, intact, warm. ABSENT: cyanosis, rash Results Laboratory Results: 06/20/20 06:19 06/20/20 06:19 06/19/20 06/19/20 06/19/20 13:40 13:40 13:40 WBC 6.3 RBC 2.79 L Hgb 8.9 L Hct 25.5 L MCV 92 MCH 31.7 MCHC 34.7 RDW 14.0 Plt Count 220 Seg Neutrophils % 47.5 Sodium 140.0 Potassium 3.9 Chloride 105 Carbon Dioxide 27 Anion Gap 8 BUN 15 Creatinine 0.89 Est GFR ( Amer) > 60 Glucose 130 H Lactic Acid Calcium 9.1 Magnesium Total Bilirubin 0.3 AST 28 Alkaline Phosphatase 56 Total Protein 6.5 Albumin 3.8 Lipase 71.3 Blood Type O POSITIVE Antibody Screen NEGATIVE 06/19/20 06/19/20 06/20/20 15:40 17:09 00:40 WBC 5.6 RBC 2.28 L Hgb 7.2 L Hct 20.7 L MCV 91 MCH 31.6 MCHC 34.7 RDW 14.0 Plt Count 180 Seg Neutrophils % 51.7 Sodium Potassium Chloride Carbon Dioxide Anion Gap BUN Creatinine Est GFR ( Amer) Glucose Lactic Acid 1.7 Calcium Magnesium 1.8 Total Bilirubin AST Alkaline Phosphatase Total Protein Albumin Lipase Blood Type Antibody Screen 06/20/20 06/20/20 06:19 06:19 WBC 5.0 RBC 2.27 L Hgb 7.2 L Hct 20.7 L MCV 91 MCH 31.5 MCHC 34.5 RDW 14.3 H Plt Count 183 Seg Neutrophils % 47.1 Sodium 139.4 Potassium 4.0 Chloride 108 H Carbon Dioxide 23 Anion Gap 8 BUN 11 Creatinine 0.77 Est GFR ( Amer) > 60 Glucose 91 Lactic Acid Calcium 8.6 Magnesium Total Bilirubin AST Alkaline Phosphatase Total Protein Albumin Lipase Blood Type Antibody Screen Impressions: Abdomen/Pelvis CT 06/19/20 16:10 IMPRESSION: Hepatic cysts. Diverticulosis coli. Uncomplicated inguinal herni as. Enlarged prostate gland. Assessment and Plan - Diagnosis (1) Abdominal pain Qualifiers: Abdominal location: left lower quadrant Qualified Code(s): R10.32 - Left lower quadrant pain Is this a current diagnosis for this admission?: Yes (2) Diverticulosis Is this a current diagnosis for this admission?: Yes Plan: CT scan does show diverticulosis. There is no evidence of acute infection so I will hold off on any antibiotic for now (3) Rectal bleeding Is this a current diagnosis for this admission?: Yes (4) Acute blood loss anemia Is this a current diagnosis for this admission?: Yes Plan: Likely secondary to lower GI bleed, diverticulosis, currently being transfused. Dr. Rivera was consulted in the ED although there is no indication for any surgical intervention at this time (5) Lower GI bleed Is this a current diagnosis for this admission?: Yes - Plan Summary Summary: Continue with to monitor H&H and transfuse as indicated - Time Time Spent with patient: 15-24 minutes Medications reviewed and adjusted accordingly: Yes Anticipated Discharge Disposition: Home, Self Care Anticipated Discharge Timeframe: within 48 hours
[2020-06-20 14:00] LABS: ABSOLUTE BASOPHILS # (AUTO) 0.1 10^3/uL (0.0-0.2); ABSOLUTE EOSINOPHILS # (AUTO) 0.1 10^3/uL (0.0-0.6); ABSOLUTE LYMPHOCYTES (AUTO) 2.1 10^3/uL (0.5-4.7); ABSOLUTE MONOCYTES (AUTO) 0.8 10^3/uL (0.1-1.4); ABSOLUTE NEUT (AUTO) 3.4 10^3/uL (1.7-8.2); BASOPHILS % (AUTO) 0.8 % (0-2); EOSINOPHILS % (AUTO) 1.2 % (0-6); HEMATOCRIT 25.9 % (37.9-51.0); HEMOGLOBIN 8.9 g/dL (13.5-17.0); LYMPHOCYTES % (AUTO) 33.2 % (13-45); MEAN CORPUSCULAR HEMOGLOBIN 30.9 pg (27.0-33.4); MEAN CORPUSCULAR HGB CONC 34.5 g/dL (32.0-36.0); MEAN CORPUSCULAR VOLUME 90 fl (80-97); MONOCYTES % (AUTO) 12.4 % (3-13); PLATELET COUNT 201 10^3/uL (150-450); RED BLOOD COUNT 2.89 10^6/uL (4.35-5.55); RED CELL DISTRIBUTION WIDTH 14.5 % (11.5-14.0); SEGMENTED NEUTROPHILS % (AUTO) 52.4 % (42-78); TOTAL CELLS COUNTED % (AUTO) 100 %; WHITE BLOOD COUNT 6.4 10^3/uL (4.0-10.5)
[2020-06-20] MEDS ORDERED: ALBUTEROL SULFATE HFA (90 MCG/PUFF) 8 GM MDI (1 MDI/ER DISP) IH PRN (16:55)
[2020-06-20] MEDS ORDERED: ERGOCALCIFEROL (VITAMIN D2) 50000 UNIT (1.25 MG) CAPSULE PO SCH (17:00)
[2020-06-20] MEDS: PANTOPRAZOLE SODIUM 40 MG VIAL IV SCH ×2 (18:04→21:41)
[2020-06-20] MEDS: SERTRALINE HCL 50 MG TABLET PO SCH (18:12)
[2020-06-20] MEDS: SUCRALFATE 1 GM TABLET PO SCH ×2 (18:12→21:41)
[2020-06-20] MEDS: TIZANIDINE HCL 4 MG TABLET PO SCH (18:12)
[2020-06-20] MEDS: ATORVASTATIN CALCIUM 40 MG TABLET PO SCH (21:41)
[2020-06-20] MEDS: INSULIN LISPRO 100 UNIT/ML 3 ML VIAL SUBCUT SCH (22:07)
[2020-06-21] MEDS: NORMAL SALINE 1000 ML 1,000 ML IV PRN ×2 (03:11→17:39)
[2020-06-21 06:07] LABS: ABSOLUTE EOSINOPHILS # (AUTO) 0.2 10^3/uL (0.0-0.6); ABSOLUTE LYMPHOCYTES (AUTO) 1.8 10^3/uL (0.5-4.7); ABSOLUTE MONOCYTES (AUTO) 0.8 10^3/uL (0.1-1.4); ABSOLUTE NEUT (AUTO) 2.7 10^3/uL (1.7-8.2); BASOPHILS % (AUTO) 0.8 % (0-2); EOSINOPHILS % (AUTO) 2.8 % (0-6); HEMATOCRIT 25.4 % (37.9-51.0); HEMOGLOBIN 8.8 g/dL (13.5-17.0); MEAN CORPUSCULAR HEMOGLOBIN 31.3 pg (27.0-33.4); MEAN CORPUSCULAR HGB CONC 34.6 g/dL (32.0-36.0); MEAN CORPUSCULAR VOLUME 90 fl (80-97); MONOCYTES % (AUTO) 14.4 % (3-13); PLATELET COUNT 194 10^3/uL (150-450); RED BLOOD COUNT 2.81 10^6/uL (4.35-5.55); RED CELL DISTRIBUTION WIDTH 14.5 % (11.5-14.0); TOTAL CELLS COUNTED % (AUTO) 100 %; WHITE BLOOD COUNT 5.5 10^3/uL (4.0-10.5)
[2020-06-21 06:28] LABS: ANION GAP 9 (5-19); BLOOD UREA NITROGEN 8 mg/dL (7-20); CALCIUM 8.6 mg/dL (8.4-10.2); CARBON DIOXIDE 23 mmol/L (22-30); CHLORIDE 108 mmol/L (98-107); GLUCOSE 94 mg/dL (75-110); POTASSIUM 3.7 mmol/L (3.6-5.0)
[2020-06-21] MEDS: CARBOXYMETHYLCELLULOSE SOD 0.5% 0.4 ML DROPERETTE OP SCH ×5 (07:26→17:25)
[2020-06-21] MEDS: INSULIN LISPRO 100 UNIT/ML 3 ML VIAL SUBCUT SCH ×4 (08:04→21:35)
[2020-06-21] MEDS ORDERED: ALBUTEROL SULFATE HFA (90 MCG/PUFF) 8 GM MDI IH PRN (09:16)
[2020-06-21] MEDS: SUCRALFATE 1 GM TABLET PO SCH ×4 (09:24→21:13)
[2020-06-21] MEDS: ATENOLOL 50 MG TABLET PO SCH (09:24)
[2020-06-21] MEDS: TIZANIDINE HCL 4 MG TABLET PO SCH ×3 (09:24→17:19)
[2020-06-21] MEDS: LORATADINE 10 MG TABLET PO SCH (09:24)
[2020-06-21] MEDS: MONTELUKAST SODIUM 10 MG TABLET PO SCH (09:24)
[2020-06-21] MEDS: ALLOPURINOL 100 MG TABLET PO SCH (09:24)
[2020-06-21] MEDS: SERTRALINE HCL 50 MG TABLET PO SCH (09:24)
[2020-06-21] MEDS: GABAPENTIN 400 MG CAPSULE PO SCH ×3 (09:25→17:19)
[2020-06-21] MEDS: HYDROCHLOROTHIAZIDE 25 MG TABLET PO SCH (09:25)
[2020-06-21] MEDS: POTASSIUM CHLORIDE 10 MEQ TABLET.ER PO SCH (09:25)
[2020-06-21] MEDS: DILTIAZEM HCL 180 MG CAPSULE.CR PO SCH (09:25)
[2020-06-21] MEDS: PANTOPRAZOLE SODIUM 40 MG VIAL IV SCH ×2 (09:25→21:13)
[2020-06-21] MEDS: FUROSEMIDE 20 MG TABLET PO SCH (09:25)
[2020-06-21] MEDS: FLUTICASONE NASAL SPRAY 50 MCG/SPRY 120 SPRAY/16 GM NASL SCH (09:34)
[2020-06-21] MEDS: LISINOPRIL 10 MG TABLET PO SCH (13:12)
--- NOTE | 2020-06-21 14:16 | PDOC PROGRESS REPORT ---
Subjective Subjective:: Per Previous Physician: "CORRINE AGGARWAL is a 64 year old male Presents to the emergency room with complaints of rectal bleeding. He does give a prior history of diverticulosis. He was here in the ER 2 days ago and returns today with the same complaints. He left AGAINST MEDICAL ADVICE at the time. He also complains of some left lower quadrant pain. There is no nausea vomiting. He was found to have diverticulosis on CT scan with no other significant findings. He did have an enlarged prostate gland and uncomplicated inguinal hernias. According to the ER physician he is already consulted general surgery. Patient's hemoglobin was 11.7 on June 16 and is currently 8.9 today his BUN was 23 and it is currently 15 and is also hemodynamically stable. He is not hypotensive." 06/21/2020 Patient still having frankly bloody bowel movements. Patient clearly needs to have upper and lower endoscopies given his history of bleeding gastric ulcers and bleeding colon polyps in the past. He is followed by Dr. Saunders outpatient who does not have privileges here. GI has not been consulted although they have limited coverage at this hospital. General surgery reportedly consulted but there is no note from them only hearsay in other services notes. I will consult them myself and encourage either surgery or GI to arrange endoscopy tomorrow. Patient's blood pressure is still quite high and I have restarted his lisinopril. He has no new complaints. Reason For Visit: GI BLEEDING,DIVERTICULOSIS Physical Exam Vital Signs: Temp Pulse Resp BP Pulse Ox 97.5 F 91 18 179/74 H 98 06/21/20 09:23 06/21/20 09:23 06/21/20 09:23 06/21/20 09:23 06/21/20 09:23 Intake & Output 06/20/20 06/21/20 06/22/20 07:59 06:59 06:59 Intake Total 480 Output Total 200 Balance 280 Weight Exam: General appearance: PRESENT: no acute distress, well-developed, well-nourished, morbidly obese -[place] male Head exam: PRESENT: atraumatic, normocephalic Eye exam: PRESENT: conjunctiva pink. ABSENT: scleral icterus Mouth exam: PRESENT: moist Respiratory exam: PRESENT: clear to auscultation bobbi. ABSENT: rales, rhonchi, wheezes Cardiovascular exam: PRESENT: RRR. ABSENT: diastolic murmur, rubs, systolic murmur GI/Abdominal exam: PRESENT: normal bowel sounds, soft. ABSENT: distended, guarding, mass, organolmegaly, rebound, tenderness Neurological exam: PRESENT: alert, awake, oriented to person, oriented to place, oriented to time, oriented to situation Psychiatric exam: PRESENT: appropriate affect, normal mood Skin exam: PRESENT: dry, intact, warm Results Laboratory Results: 06/21/20 05:02 06/21/20 05:02 06/20/20 06/21/20 06/21/20 13:34 05:02 05:02 WBC 6.4 5.5 RBC 2.89 L 2.81 L Hgb 8.9 L 8.8 L Hct 25.9 L 25.4 L MCV 90 90 MCH 30.9 31.3 MCHC 34.5 34.6 RDW 14.5 H 14.5 H Plt Count 201 194 Seg Neutrophils % 52.4 49.0 Sodium 139.8 Potassium 3.7 Chloride 108 H Carbon Dioxide 23 Anion Gap 9 BUN 8 Creatinine 0.82 Est GFR ( Amer) > 60 Glucose 94 Calcium 8.6 Impressions: Abdomen/Pelvis CT 06/19/20 16:10 IMPRESSION: Hepatic cysts. Diverticulosis coli. Uncomplicated inguinal hernias. Enlarged prostate gland. Assessment and Plan - Diagnosis (1) Lower GI bleed Is this a current diagnosis for this admission?: Yes (2) Upper GI bleed Is this a current diagnosis for this admission?: Yes (3) Abdominal pain Qualifiers: Abdominal location: left lower quadrant Qualified Code(s): R10.32 - Left lower quadrant pain Is this a current diagnosis for this admission?: Yes (4) Acute blood loss anemia Is this a current diagnosis for this admission?: Yes (5) Anemia Qualifiers: Anemia type: other cause Other causes of anemia: acute posthemorrhagic Qualified Code(s): D62 - Acute posthemorrhagic anemia Is this a current diagnosis for this admission?: Yes (6) Diverticulosis Is this a current diagnosis for this admission?: Yes (7) Rectal bleeding Is this a current diagnosis for this admission?: Yes (8) History of gastric ulcer Is this a current diagnosis for this admission?: Yes (9) History of colon polyps Is this a current diagnosis for this admission?: Yes (10) History of GI bleed Is this a current diagnosis for this admission?: Yes - Plan Summary Summary: Lower vs Upper GI bleed -Persistent rectal bleeding with bloody stools both bright and dark with clots -Per notes, general surgery was contacted by ED but never formally consulted. I discussed the case myself with Dr. Yanez today who states he would like the patient to have GoLYTELY bowel prep and have upper and lower endoscopy on 06/22/2020, n.p.o. at midnight 06/21/2020 Extensive GI bleed history including gastric ulcer bleeding as well as multiple bleeding colon polyps in the past as well. Follows with Dr. Saunders, last co lonoscopy 3 years ago per patient showing multiple colon polyps EGD Colonoscopy Acute blood loss anemia -Likely secondary to lower GI bleed, diverticulosis, currently being transfused. Dr. Rivera was consulted in the ED although there is no indication for any surgical intervention at this time -Trend CBC Transfuse for hemoglobin less than 7 Hypertension Home medications continued Likely worsened by transfusions and volume added from these Morbid obesity Needs weight loss - Time Time Spent with patient: 25-34 minutes Medications reviewed and adjusted accordingly: Yes Anticipated Discharge Disposition: Home, Self Care Anticipated Discharge Timeframe: within 48 hours - Inpatient Certification Based on my medical assessment, after consideration of the patient's comorbidities, presenting symptoms, or acuity I expect that the services needed warrant INPATIENT care.: Yes I certify that my determination is in accordance with my understanding of Medicare's requirements for reasonable and necessary INPATIENT services [42 CFR 412.3e].: Yes Medical Necessity: Significant Comorbidiites Make Outpatient Treatment Too Risky, Need Close Monitoring Due to Risk of Patient Decompensation, Need for Surgery, Risk of Complication if Not Cared For in Hospital, Risk of Diagnosis Which Will Require Inpatient Eval/Care/Monitoring
[2020-06-21] MEDS ORDERED: PEG 3350/NA SULF,BICARB,CL/KCL 4000 ML PO ONE (16:30)
--- NOTE | 2020-06-21 18:03 | PDOC CONSULTATION ---
Consultation Consult Date: 06/21/20 Attending physician:: ARJUN HERNANDEZ Provider Consulted: [facility] Consult reason:: gi bleeding History of Present Illness Admission Date/PCP: 06/19/20 19:10 History of Present Illness: CORRINE AGGARWAL is a 64 year old male "CORRINE AGGARWAL is a 64 year old male Presents to the emergency room with complaints of rectal bleeding. He does give a prior history of diverticulosis. He was here in the ER 2 days ago and returns today with the same complaints. He left AGAINST MEDICAL ADVICE at the time. He also complains of some left lower quadrant pain. There is no nausea vomiting. He was found to have diverticulosis on CT scan with no other significant findings. He did have an enlarged prostate gland and uncomplicated inguinal hernias. According to the ER physician he is already consulted general surgery. Patient's hemoglobin was 11.7 on June 16 and is currently 8.9 today his BUN was 23 and it is currently 15 and is also hemodynamically stable. He is not hypotensive. Extensive GI bleed history including gastric ulcer bleeding as well as multiple bleeding colon polyps in the past as well. Follows with Dr. Saunders, last colonoscopy 3 years ago per patient showing multiple colon polyps Past Medical History Cardiac Medical History: Reports: Hypertension Endocrine Medical History: Reports: Diabetes Mellitus Type 2 GI Medical History: Reports: Diverticulitis, Peptic Ulcer Disease Psychiatric Medical History: Denies: Depression Past Surgical History Past Surgical History: Reports: None Social History Smoking Status: Former Smoker Electronic Cigarette use?: No - Advance Directive Resuscitation Status: Full Code Family History Family History: Reviewed & Not Pertinent Parental Family History Reviewed: No Children Family History Reviewed: NA Sibling(s) Family History Reviewed.: NA Medication/Allergy Home Medications: Omeprazole 40 mg PO DAILY #30 capsule. 06/16/20 Sucralfate [Carafate 1 gm Tablet] 1 gm PO QID #20 tablet 06/16/20 Albuterol Sulfate [Proair Hfa Inhalation Aerosol 8.5 gm Mdi] 2 puff IH Q4HP PRN 06/19/20 Allopurinol [Zyloprim 100 mg Tablet] 100 mg PO DAILY 06/19/20 Atenolol [Tenormin] 25 mg PO DAILY 06/19/20 Atorvastatin Calcium [Lipitor 40 mg Tablet] 40 mg PO QHS 06/19/20 Carboxymethylcellulose Sodium [Lubricating Plus] 1 each OP TID 06/19/20 Diltiazem HCl [Cardizem Cd] 360 mg PO DAILY 06/19/20 Ergocalciferol (Vitamin D2) [Vitamin D2] 1,250 mcg PO Q7D 06/19/20 Fluticasone Propionate [Flonase Nasal [place] 50 Mcg/[place] 16 gm] 2 spray NASL DAILY 06/19/20 Furosemide [Lasix 20 mg Tablet] 20 mg PO QAM 06/19/20 Gabapentin [Neurontin] 800 mg PO TID 06/19/20 Hydrochlorothiazide [Hydrodiuril 50 mg Tablet] 50 mg PO DAILY 06/19/20 Lisinopril/Hydrochlorothiazide [Lisinopril-Hctz 20-25 mg Tab] 1 each PO DAILY 06/19/20 Loratadine [Claritin 10 mg Tablet] 10 mg PO DAILY 06/19/20 Metformin HCl 500 mg PO BID 06/19/20 Montelukast Sodium [Singulair 10 mg Tablet] 10 mg PO DAILY 06/19/20 Nitroglycerin [Nitrostat 0.4 mg (1/150 Gr) Tabs 25/Bottle] 1 tab SL Q5MP PRN 06/19/20 Potassium Chloride [Klor-Con M10] 10 meq PO DAILY 06/19/20 Sertraline HCl [Zoloft 50 mg Tablet] 50 mg PO DAILY 06/19/20 Tizanidine HCl [Zanaflex 4 Mg Tablet] 4 mg PO TID 06/19/20 Allergies/Adverse Reactions: No Known Allergies Allergy (Unverified 06/16/20 01:36) Review of Systems Constitutional: ABSENT: as per HPI, anorexia, chills, fatigue, fever(s), headache(s), night sweats, weakness, weight gain, weight loss, other Eyes: ABSENT: as per HPI, visual disturbances, other Ears: ABSENT: as per HPI, hearing changes, other Nose, Mouth, and Throat: ABSENT: as per HPI, headache(s), mouth pain, sore throat, vertigo, other Breasts: ABSENT: as per HPI, other Cardiovascular: ABSENT: as per HPI, chest pain, dyspnea on exertion, edema, orthropnea, palpitations, other Respiratory: ABSENT: as per HPI, cough, dyspnea, hemoptysis, sputum, other Gastrointestinal: PRESENT: bloating Genitourinary: ABSENT: as per HPI, difficulty urinating, dysuria, hematuria, nocturia, other Musculoskeletal: ABSENT: as per HPI, back pain, deformity, joint swelling, muscle weakness, other Integumentary: ABSENT: as per HPI, diaphoresis, erythema, lesions, pruritus, rash, wounds, other Neurological: ABSENT: as per HPI, abnormal gait, abnormal movements, abnormal speech, confusion, convulsions, dizziness, focal weakness, frequent falls, lack of coordination, memory loss, numbness, paresthesias, restless legs, syncope, tingling, tremor(s), vertigo, weakness, other Psychiatric: ABSENT: as per HPI, anxiety, depression, hallucinations, homidical ideation, suicidal ideation, other Endocrine: ABSENT: as per HPI, cold intolerance, flushing, heat intolerance, menstrual abnormalities, polydipsia, polyphagia, polyuria, other Hematologic/Lymphatic: ABSENT: as per HPI, easy bleeding, easy bruising, lymphadenopathy, other Allergic/Immunologic: ABSENT: as per HPI, seasonal rhinorrhea, other Physical Exam Vital Signs: Temp Pulse Resp BP Pulse Ox 97.4 F 69 16 124/75 97 06/21/20 13:25 06/21/20 14:00 06/21/20 13:25 06/21/20 13:25 06/21/20 13:25 Intake & Output 06/20/20 06/21/20 06/22/20 07:59 06:59 06:59 Intake Total 480 Output Total 200 Balance 280 Weight General appearance: PRESENT: obese Head exam: PRESENT: atraumatic Eye exam: PRESENT: EOMI Ear exam: PRESENT: normal external ear exam Mouth exam: PRESENT: moist Teeth exam: PRESENT: poor dentation Neck exam: PRESENT: full ROM Respiratory exam: PRESENT: clear to auscultation bobbi Cardiovascular exam: PRESENT: RRR Pulses: PRESENT: normal radial pulses, normal femoral pulses Vascular exam: PRESENT: normal capillary refill Breast: PRESENT: Normal GI/Abdominal exam: PRESENT: soft Rectal exam: PRESENT: deferred Extremities exam: PRESENT: full ROM Musculoskeletal exam: PRESENT: full ROM Neurological exam: PRESENT: alert, awake, oriented to person, oriented to place Psychiatric exam: PRESENT: appropriate affect Skin exam: PRESENT: dry Results Laboratory Results: 06/21/20 05:02 06/21/20 05:02 06/21/20 06/21/20 05:02 05:02 WBC 5.5 RBC 2.81 L Hgb 8.8 L Hct 25.4 L MCV 90 MCH 31.3 MCHC 34.6 RDW 14.5 H Plt Count 194 Seg Neutrophils % 49.0 Sodium 139.8 Potassium 3.7 Chloride 108 H Carbon Dioxide 23 Anion Gap 9 BUN 8 Creatinine 0.82 Est GFR ( Amer) > 60 Glucose 94 Calcium 8.6 Impressions: Abdomen/Pelvis CT 06/19/20 16:10 IMPRESSION: Hepatic cysts. Diverticulosis coli. Uncomplicated inguinal hernias. Enlarged prostate gland. Assessment & Plan - Diagnosis (1) Acute blood loss anemia Is this a current diagnosis for this admission?: Yes (2) Diverticulosis Is this a current diagnosis for this admission?: Yes (3) History of GI bleed Is this a current diagnosis for this admission?: Yes (4) History of colon polyps Is this a current diagnosis for this admission?: Yes (5) History of gastric ulcer Is this a current diagnosis for this admission?: Yes (6) Lower GI bleed Is this a current diagnosis for this admission?: Yes - Plan Summary Plan Summary: hx of gastric ulcer and lower gi bleeding hx of colonic polyps and divertiulosis last colo 3yrs ago with removal of 2 polpys recommend bowel prep tonight. will schedule for upper and lower endoscopy
[2020-06-21] MEDS: ATORVASTATIN CALCIUM 40 MG TABLET PO SCH (21:13)
[2020-06-22] MEDS: NORMAL SALINE 1000 ML 1,000 ML IV PRN ×2 (05:44→15:13)
--- NOTE | 2020-06-22 08:35 | PDOC PROGRESS REPORT ---
Subjective Progress Note for:: 06/22/20 Subjective:: 64-year-old male with complaints of bright red rectal bleeding. The patient has a known history of diverticulosis. He also has a history of colon polyps. He reports that he has had "gastric ulcers in the past". He denies any abdominal pain at this time. He finished his colon prep, with has not had any further bleeding. Reason For Visit: GI BLEEDING,DIVERTICULOSIS Physical Exam Vital Signs: Temp Pulse Resp BP Pulse Ox 97.8 F 52 L 16 142/51 H 95 06/22/20 03:54 06/22/20 03:54 06/22/20 03:54 06/22/20 03:54 06/22/20 03:54 Intake & Output 06/21/20 06/22/20 06/23/20 06:59 06:59 06:59 Intake Total 2866 Output Total 1300 Balance 1566 Weight 93.1 kg General appearance: PRESENT: no acute distress, cooperative Head exam: PRESENT: atraumatic, normocephalic Eye exam: PRESENT: EOMI, PERRLA. ABSENT: scleral icterus Mouth exam: PRESENT: moist, neck supple Neck exam: ABSENT: meningismus, tenderness, thyromegaly, tracheal deviation Respiratory exam: PRESENT: unlabored. ABSENT: tachypnea, wheezes Cardiovascular exam: ABSENT: tachycardia GI/Abdominal exam: PRESENT: soft. ABSENT: distended, tenderness Extremities exam: ABSENT: clubbing Musculoskeletal exam: ABSENT: deformity Neurological exam: PRESENT: alert, awake, oriented to person, oriented to place, oriented to time, oriented to situation, CN II-XII grossly intact Psychiatric exam: ABSENT: agitated, anxious, depressed Focused psych exam: ABSENT: delusional Skin exam: ABSENT: erythema, jaundice Results Laboratory Results: 06/21/20 05:02 06/21/20 05:02 Impressions: Abdomen/Pelvis CT 06/19/20 16:10 IMPRESSION: Hepatic cysts. Diverticulosis coli. Uncomplicated inguinal hernias. Enlarged prostate gland. Assessment & Plan - Diagnosis (1) Rectal bleeding Is this a current diagnosis for this admission?: Yes - Time Anticipated Discharge Disposition: Home, Self Care Anticipated Discharge Timeframe: within 24 hours - Plan Summary Plan Summary: 54-year-old male with complaints of rectal bleeding. It has now subsided. He has a history of peptic ulcer disease, as well as polyps. His bleeding is likely diverticular in nature. His last colonoscopy was 2 years ago (where several polyps were removed). The patient has been prepped for colonoscopy tod ay. Plan for EGD and colonoscopy today in an effort to identify any occult malignancy. Risks/benefits discussed, informed consent obtained, and all questions answered.
[2020-06-22] MEDS ORDERED: PROPOFOL INJ 200 MG/20 ML VIAL IV ONE (10:36)
[2020-06-22] MEDS: INSULIN LISPRO 100 UNIT/ML 3 ML VIAL SUBCUT SCH ×2 (10:57→14:57)
[2020-06-22] MEDS ORDERED: MEPERIDINE HCL/PF INJ 25 MG/1 ML DISP.SYRIN IV PRN (13:08)
[2020-06-22] MEDS ORDERED: DIPHENHYDRAMINE HCL 50 MG/ML VIAL IV PRN (13:08)
[2020-06-22] MEDS ORDERED: PROMETHAZINE HCL INJ 25 MG/1 ML VIAL IV PRN (13:08)
[2020-06-22] MEDS ORDERED: FENTANYL CITRATE INJ/PF 100 MCG/2 ML AMPUL IV PRN ×2 (13:08)
--- NOTE | 2020-06-22 13:29 | Operative Report ---
Nonrecallable Operative Report DATE OF SURGERY: 06/22/20 PREOPERATIVE DIAGNOSIS: GI bleeding POSTOPERATIVE DIAGNOSIS: 1. No old or new blood throughout the visualized gastrointestinal tract. 2. Small hiatal hernia. 3. Mild reflux esophagitis. 4. Mild duodenitis. 5. Pandiverticulosis. 6. Moderate sized internal hemorrhoids, nonbleeding. OPERATION: 1. EGD with biopsy. 2. Colonoscopy to the cecum. SURGEON: LYNDON VOGEL ANESTHESIA: LMAC TISSUE REMOVED OR ALTERED: 1. Antral biopsy. 2. Duodenal biopsy. 3. Distal esophagus biopsy. COMPLICATIONS: None apparent ESTIMATED BLOOD LOSS: Minimal PROCEDURE: Drain/implants: None. Procedure in detail: After informed consent was obtained, the patient was brought to the operating room and laid in the left lateral decubitus position. The endoscope was passed down the esophagus, and into the stomach. The stomach was insufflated with air. The scope was passed through the pylorus, and into the first and second portions of the duodenum. The second portion of the duodenum appeared normal. The first portion of the duodenum had a mild amount of inflammation. This was biopsied. The scope was withdrawn into the antrum, which appeared normal. Biopsy was taken in the antrum to rule out H. pylori infection. A retroflexion maneuver was performed in the gastric body. This demonstrated a small, sliding-type hiatal hernia. The scope was withdrawn into the hiatal hernia, where a mild amount of reflux esophagitis was identified. This was biopsied. The scope was then withdrawn up the remainder of the esophagus. The remainder the esophagus appeared smooth in contour, without masses or lesions. The scope was removed from the patient's oropharynx, and this portion of the procedure was concluded. Attention was then turned to the colonoscopy. The colonoscope was inserted into the rectum. It was passed up the rectum, sigmoid colon, descending colon, across the transverse colon, down the ascending colon, and into the cecum. The ileocecal valve and appendiceal orifice were identified. The scope was then withdrawn, circumferentially noting the mucosa. The prep was good. The scope was withdrawn past the ascending colon, transverse colon, down the descending colon, sigmoid colon, and into the rectum. In the rectum, a retroflexion m aneuver was performed. This demonstrated moderate sized internal hemorrhoids that were nonbleeding. Please note that throughout the examination there were no masses, lesions, areas of inflammation, new blood, old blood, or other significant abnormalities found throughout the colon. The patient did have scattered diverticulosis throughout the colon extending from the ascending colon, to the rectosigmoid. The scope was then straightened, air was suctioned from the rectum, the scope was removed, and the procedure was concluded. All sponge, instrument, and needle counts were correct. Condition: Stable.
--- NOTE | 2020-06-22 13:30 | Progress Note ---
Provider Note Provider Note: 64-year-old male status post EGD and colonoscopy. He was found to have mild duodenitis. Biopsies were taken. Follow-up with [facility] in 2 weeks for results. No old blood or active bleeding found throughout the GI tract. His bleeding was likely diverticular in nature. I did not find any polyps (although he has a history of polyps). The patient will need a repeat colonoscopy in 5 years, unless developed. Surgery will sign off at this time.
[2020-06-22] MEDS: SUCRALFATE 1 GM TABLET PO SCH ×2 (14:34→14:35)
[2020-06-22] MEDS: DILTIAZEM HCL 180 MG CAPSULE.CR PO SCH (14:36)
[2020-06-22] MEDS: LORATADINE 10 MG TABLET PO SCH (14:44)
[2020-06-22] MEDS: FLUTICASONE NASAL SPRAY 50 MCG/SPRY 120 SPRAY/16 GM NASL SCH (14:45)
[2020-06-22] MEDS: HYDROCHLOROTHIAZIDE 25 MG TABLET PO SCH (14:48)
[2020-06-22] MEDS: POTASSIUM CHLORIDE 10 MEQ TABLET.ER PO SCH (14:50)
[2020-06-22] MEDS: GABAPENTIN 400 MG CAPSULE PO SCH ×2 (14:50→14:51)
[2020-06-22] MEDS: FUROSEMIDE 20 MG TABLET PO SCH (14:51)
[2020-06-22] MEDS: LISINOPRIL 10 MG TABLET PO SCH (14:53)
[2020-06-22] MEDS: CARBOXYMETHYLCELLULOSE SOD 0.5% 0.4 ML DROPERETTE OP SCH ×2 (14:54→15:05)
[2020-06-22] MEDS: PANTOPRAZOLE SODIUM 40 MG VIAL IV SCH (14:54)
[2020-06-22] MEDS: MONTELUKAST SODIUM 10 MG TABLET PO SCH (14:55)
[2020-06-22] MEDS: ATENOLOL 50 MG TABLET PO SCH (14:55)
[2020-06-22] MEDS: TIZANIDINE HCL 4 MG TABLET PO SCH ×2 (14:56)
[2020-06-22] MEDS: SERTRALINE HCL 50 MG TABLET PO SCH (14:57)
[2020-06-22] MEDS: ALLOPURINOL 100 MG TABLET PO SCH (14:57)
--- NOTE | 2020-06-22 15:26 | PDOC DISCHARGE SUMMARY ---
Impression - Admit/DC Date/PCP Admission Date/Primary Care Provider: 06/19/20 19:10 Discharge Date: 06/22/20 - Discharge Diagnosis (1) Lower GI bleed Is this a current diagnosis for this admission?: Yes (2) Upper GI bleed Is this a current diagnosis for this admission?: Yes (3) Abdominal pain Is this a current diagnosis for this admission?: Yes (4) Acute blood loss anemia Is this a current diagnosis for this admission?: Yes (5) Anemia Is this a current diagnosis for this admission?: Yes (6) Diverticulosis Is this a current diagnosis for this admission?: Yes (7) Rectal bleeding Is this a current diagnosis for this admission?: Yes (8) History of gastric ulcer Is this a current diagnosis for this admission?: Yes (9) History of colon polyps Is this a current diagnosis for this admission?: Yes (10) History of GI bleed Is this a current diagnosis for this admission?: Yes - Assessment Summary: Per Previous Physician: "CORRINE AGGARWAL is a 64 year old male Presents to the emergency room with complaints of rectal bleeding. He does give a prior history of diverticulosis. He was here in the ER 2 days ago and returns today with the same complaints. He left AGAINST MEDICAL ADVICE at the time. He also complains of some left lower quadrant pain. There is no nausea vomiting. He was found to have diverticulosis on CT scan with no other significant findings. He did have an enlarged prostate gland and uncomplicated inguinal hernias. According to the ER physician he is already consulted general surgery. Patient's hemoglobin was 11.7 on June 16 and is currently 8.9 today his BUN was 23 and it is currently 15 and is also hemodynamically stable. He is not hypotensive." 06/21/2020 Patient still having frankly bloody bowel movements. Patient clearly needs to have upper and lower endoscopies given his history of bleeding gastric ulcers and bleeding colon polyps in the past. He is followed by Dr. Saunders outpatient who does not have privileges here. GI has not been consulted although they have limited coverage at this hospital. General surgery reportedly consulted but there is no note from them only hearsay in other services notes. I will consult them myself and encourage either surgery or GI to arrange endoscopy tomorrow. Patient's blood pressure is still quite high and I have restarted his lisinopril. He has no new complaints. On day of discharge, patient underwent upper and lower endoscopy which did not reveal source of bleeding. Suspect diverticular bleed per general surgery note. Patient notes he does not have any further bleeding in his stool. Patient will be discharged home with close follow-up with his PCP and GI physician. He must contact these physicians if he has any further GI bleeding. Lower GI bleedresolved -Persistent rectal bleeding with bloody stools both bright and dark with clots -Per notes, general surgery was contacted by ED but never formally consulted. I discussed the case myself with Dr. Yanez today who states he would like the patient to have GoLYTELY bowel prep and have upper and lower endoscopy on 06/22/2020, n.p.o. at midnight 06/21/2020 Extensive GI bleed history including gastric ulcer bleeding as well as multiple bleeding colon polyps in the past as well. Follows with Dr. Saunders, last colonoscopy 3 years ago per patient showing multiple colon polyps EGD showed no source of bleeding, mild duodenitis Colonoscopy showed no clear source of bleeding, no polyps seen Bleeding resolved, suspect diverticular source per general surgery Acute blood loss anemia -Likely secondary to lower GI bleed, diverticulosis, currently being transfused. Dr. Rivera was consulted in the ED although there is no indication for any surgical intervention at this time -Trend CBC Transfuse for hemoglobin less than 7 Hypertension Home medications continued Likely worsened by transfusions and volume added from these Morbid obesity Needs weight loss - Additional Information Resuscitation Status: Full Code Discharge Diet: As Tolerated, Regular Discharge Activity: Activity As Tolerated, Balance Activity w/Rest Prescriptions: Lisinopril [Prinivil 10 mg Tablet] 10 mg PO DAILY #30 tablet Home Medications: Omeprazole 40 mg PO DAILY #30 capsule. 06/16/20 Sucralfate [Carafate 1 gm Tablet] 1 gm PO QID #20 tablet 06/16/20 Albuterol Sulfate [Proair HFA Inhalation Aerosol 8.5 gm MDI] 2 puff IH Q4HP PRN 06/19/20 Allopurinol [Zyloprim 100 mg Tablet] 100 mg PO DAILY 06/19/20 Atenolol [Tenormin] 25 mg PO DAILY 06/19/20 Atorvastatin Calcium [Lipitor 40 mg Tablet] 40 mg PO QHS 06/19/20 Carboxymethylcellulose Sodium [Lubricating Plus] 1 each OP TID 06/19/20 Diltiazem HCl [Cardizem Cd] 360 mg PO DAILY 06/19/20 Ergocalciferol (Vitamin D2) [Vitamin D2] 1,250 mcg PO Q7D 06/19/20 Fluticasone Propionate [Flonase Nasal [place] 50 Mcg/[place] 16 gm] 2 spray NASL DA PAVAN 06/19/20 Furosemide [Lasix 20 mg Tablet] 20 mg PO QAM 06/19/20 Gabapentin [Neurontin] 800 mg PO TID 06/19/20 Hydrochlorothiazide [Hydrodiuril 50 mg Tablet] 50 mg PO DAILY 06/19/20 Loratadine [Claritin 10 mg Tablet] 10 mg PO DAILY 06/19/20 Metformin HCl 500 mg PO BID 06/19/20 Montelukast Sodium [Singulair 10 mg Tablet] 10 mg PO DAILY 06/19/20 Nitroglycerin [Nitrostat 0.4 mg (1/150 Gr) Tabs 25/Bottle] 1 tab SL Q5MP PRN 06/19/20 Potassium Chloride [Klor-Con M10] 10 meq PO DAILY 06/19/20 Sertraline HCl [Zoloft 50 mg Tablet] 50 mg PO DAILY 06/19/20 Lisinopril [Prinivil 10 mg Tablet] 10 mg PO DAILY #30 tablet 06/22/20 Tizanidine HCl [Zanaflex 4 mg Tablet] 4 mg PO TIDP PRN #0 06/22/20 History of Present Illiness History of Present Illness: Per Previous Physician: "CORRINE AGGARWAL is a 64 year old male Presents to the emergency room with complaints of rectal bleeding. He does give a prior history of diverticulosis. He was here in the ER 2 days ago and returns today with the same complaints. He left AGAINST MEDICAL ADVICE at the time. He also complains of some left lower quadrant pain. There is no nausea vomiting. He was found to have diverticulosis on CT scan with no other significant findings. He did have an enlarged prostate gland and uncomplicated inguinal hernias. According to the ER physician he is already consulted general surgery. Patient's hemoglobin was 11.7 on June 16 and is currently 8.9 today his BUN was 23 and it is currently 15 and is also hemodynamically stable. He is not hypotensive." Physical Exam Vital Signs: Temp Pulse Resp BP Pulse Ox 97.7 F 81 16 169/86 H 98 06/22/20 14:10 06/22/20 14:10 06/22/20 14:10 06/22/20 14:10 06/22/20 14:10 Intake & Output 06/21/20 06/22/20 06/23/20 06:59 06:59 06:59 Intake Total 2866 1711 Output Total 1300 0 Balance 1566 1711 Weight 93.1 kg Exam: General appearance: PRESENT: no acute distress, well-developed, well-nourished, morbidly obese -[place] male with BMI 37.5, states he feels well would like to go home, denies any bleeding in his stool Head exam: PRESENT: atraumatic, normocephalic Eye exam: PRESENT: conjunctiva pink. ABSENT: scleral icterus Mouth exam: PRESENT: moist Respiratory exam: PRESENT: clear to auscultation bobbi. ABSENT: rales, rhonchi, wheezes Cardiovascular exam: PRESENT: RRR. ABSENT: diastolic murmur, rubs, systolic murmur GI/Abdominal exam: PRESENT: normal bowel sounds, soft. ABSENT: distended, guarding, mass, organolmegaly, rebound, tenderness Neurological exam: PRESENT: alert, awake, oriented to person, oriented to place, oriented to time, oriented to situation Psychiatric exam: PRESENT: appropriate affect, normal mood Skin exam: PRESENT: dry, intact, warm Results Laboratory Results: WBC 5.5 10^3/uL (4.0-10.5) 06/21/20 05:02 RBC 2.81 10^6/uL (4.35-5.55) L 06/21/20 05:02 Hgb 8.8 g/dL (13.5-17.0) L 06/21/20 05:02 Hct 25.4 % (37.9-51.0) L 06/21/20 05:02 MCV 90 fl (80-97) 06/21/20 05:02 MCH 31.3 pg (27.0-33.4) 06/21/20 05:02 MCHC 34.6 g/dL (32.0-36.0) 06/21/20 05:02 RDW 14.5 % (11.5-14.0) H 06/21/20 05:02 Plt Count 194 10^3/uL (150-450) 06/21/20 05:02 Lymph % (Auto) 33.0 % (13-45) 06/21/20 05:02 Mathews % (Auto) 14.4 % (3-13) H 06/21/20 05:02 Eos % (Auto) 2.8 % (0-6) 06/21/20 05:02 Baso % (Auto) 0.8 % (0-2) 06/21/20 05:02 Absolute Neuts (auto) 2.7 10^3/uL (1.7-8.2) 06/21/20 05:02 Absolute Lymphs (auto) 1.8 10^3/uL (0.5-4.7) 06/21/20 05:02 Absolute Monos (auto) 0.8 10^3/uL (0.1-1.4) 06/21/20 05:02 Absolute Eos (auto) 0.2 10^3/uL (0.0-0.6) 06/21/20 05:02 Absolute Basos (auto) 0.0 10^3/uL (0.0-0.2) 06/21/20 05:02 Seg Neutrophils % 49.0 % (42-78) 06/21/20 05:02 Sodium 139.8 mmol/L (137-145) 06/21/20 05:02 Potassium 3.7 mmol/L (3.6-5.0) 06/21/20 05:02 Chloride 108 mmol/L (98-107) H 06/21/20 05:02 Carbon Dioxide 23 mmol/L (22-30) 06/21/20 05:02 Anion Gap 9 (5-19) 06/21/20 05:02 BUN 8 mg/dL (7-20) 06/21/20 05:02 Creatinine 0.82 mg/dL (0.52-1.25) 06/21/20 05:02 Est GFR ( Amer) > 60 (>60) 06/21/20 05:02 Est GFR (MDRD) Non-Af > 60 (>60) 06/21/20 05:02 Glucose 94 mg/dL (75-110) 06/21/20 05:02 POC Glucose 86 mg/dL (70-110) 06/22/20 11:48 Lactic Acid 1.7 mmol/L (0.7-2.1) 06/19/20 17:09 Calcium 8.6 mg/dL (8.4-10.2) 06/21/20 05:02 Magnesium 1.8 mg/dL (1.6-2.3) 06/19/20 15:40 Total Bilirubin 0.3 mg/dL (0.2-1.3) 06/19/20 13:40 Direct Bilirubin 0.1 mg/dL (0.0-0.4) 06/19/20 13:40 Neonat Total Bilirubin Not Reportable 06/19/20 13:40 Neonat Direct Bilirubin Not Reportable 06/19/20 13:40 Neonat Indirect Bili Not Reportable 06/19/20 13:40 AST 28 U/L (17-59) 06/19/20 13:40 ALT 21 U/L (<50) 06/19/20 13:40 Alkaline Phosphatase 56 U/L (38-126) 06/19/20 13:40 Total Protein 6.5 g/dL (6.3-8.2) 06/19/20 13:40 Albumin 3.8 g/dL (3.5-5.0) 06/19/20 13:40 Lipase 71.3 U/L (23-300) 06/19/20 13:40 SARS-CoV-2 (PCR) NEGATIVE (NEGATIVE) 06/21/20 18:25 Blood Type O POSITIVE 06/19/20 13:40 Blood Type Confirm O POSITIVE 06/19/20 13:40 Antibody Screen NEGATIVE 06/19/20 13:40 Crossmatch See Detail 06/19/20 13:40 Impressions: Abdomen/Pelvis CT 06/19/20 16:10 IMPRESSION: Hepatic cysts. Diverticulosis coli. Uncomplicated inguinal hernias. Enlarged prostate gland. Plan Goals: Follow-up with PCP Follow-up with GI Time Spent: Greater than 30 Minutes Stroke Is this a Stroke Patient?: No Acute Heart Failure Is this a Heart Failure Patient?: No
[2020-06-22 16:51] VITALS: BP 169/86
== END 2020-06-22 18:00 | disposition home or self-care (01) | DRG 378 ==
LOC: ER 13:40 → EH 19:10 → 3W 21:33
PROVIDERS: ADMIT Internal Medicine; ATTEND Internal Medicine
PROC: 30233N1 Transfusion of Nonautologous Red Blood Cells into Peripheral Vein, Percutaneous Approach (ICD-10-PCS; 2020-06-20)
PROC: 0DB38ZX Excision of Lower Esophagus, Via Natural or Artificial Opening Endoscopic, Diagnostic (ICD-10-PCS; 2020-06-22)
PROC: 0DJD8ZZ Inspection of Lower Intestinal Tract, Via Natural or Artificial Opening Endoscopic (ICD-10-PCS; 2020-06-22)
PROC: 0DB98ZX Excision of Duodenum, Via Natural or Artificial Opening Endoscopic, Diagnostic (ICD-10-PCS; principal; 2020-06-22 13:30)
PROC: 0DB78ZX Excision of Stomach, Pylorus, Via Natural or Artificial Opening Endoscopic, Diagnostic (ICD-10-PCS; 2020-06-22 13:30)
DX: K57.33 Diverticulitis of large intestine without perforation or abscess with bleeding (principal); D62 Acute posthemorrhagic anemia; I10 Essential (primary) hypertension; E11.9 Type 2 diabetes mellitus without complications; Z20.828 Contact with and (suspected) exposure to other viral communicable diseases; K40.90 Unilateral inguinal hernia, without obstruction or gangrene, not specified as recurrent; E66.01 Morbid (severe) obesity due to excess calories; K44.9 Diaphragmatic hernia without obstruction or gangrene; K21.9 Gastro-esophageal reflux disease without esophagitis; K64.8 Other hemorrhoids; Z86.010 Personal history of colon polyps; Z87.11 Personal history of peptic ulcer disease; Z87.891 Personal history of nicotine dependence; Z79.51 Long term (current) use of inhaled steroids; Z79.899 Other long term (current) drug therapy
CPT/HCPCS: 36415; 36430; 43239; 45378; 74177; 80048; 80053; 813; 82962; 83605; 83690; 83735; 85025; 86850; 86900; 86901; 86920; 87040; 87635; 88305; 88342; 93005; 93010; 96361; 96365; 99285; C9113; C9803; J1335; J2704; J3490; J7030; J7120; P9016